=== PATIENT | female | born 1990 | race Hispanic/Latino ===

== ENCOUNTER 2017-05-20 09:58 | Emergency (ER) | payer OTHER ==
[2017-05-20 09:58] VITALS: BMI 31.5
--- NOTE | 2017-05-20 10:23 | C.PDOC ---
History Of Present Illness 27 year old female presents to the ED for evaluation of left lower quadrant abdominal pain which began around 3 days ago. Patient states her pain radiates to her left flank area and has worsened since its onset. Patient states she had brown-bloody spotting for one day on 05/10 and reports she has been experiencing nausea for around 3 weeks. Patient's last menstrual period was 04/16 and her urine was found to be hCG positive in ED Triage. Patient denies fever , chills and vomiting at this time. Patient reports history of one right-sided ectopic in 2007. Time Seen by Provider: 05/20/17 10:13 Chief Complaint (Nursing): Abdominal Pain History Per: Patient History/Exam Limitations: no limitations Onset/Duration Of Symptoms: Days (3) Current Symptoms Are (Timing): Worse Location Of Pain/Discomfort: LLQ Radiation Of Pain To:: Flank (left) Quality Of Discomfort: "Pain" Associated Symptoms: Nausea. denies: Fever, Chills, Vomiting Additional History Per: Patient Abnormal Vaginal Bleeding: Yes Last Menstral Period: 04/16/2017 : 2 Para: 0 Miscarriage: 1 Past Medical History Reviewed: Historical Data, Nursing Documentation, Vital Signs Vital Signs: Last Vital Signs Temp 97.9 F 05/20/17 15:17 Pulse 65 05/20/17 15:17 Resp 22 05/20/17 15:17 BP 137/70 05/20/17 15:17 Pulse Ox 100 05/20/17 15:17 - Medical History PMH: Asthma, Bronchitis, Migraine Surgical History: No Surg Hx - [facility] Procedures INJECT/INFUSE NEC (03/10/14) Family History: States: Unknown Family Hx - Social History Hx Tobacco Use: Yes Hx Alcohol Use: No Hx Substance Use: No - Immunization History Hx Tetanus Toxoid Vaccination: Yes Hx Influenza Vaccination: Yes Hx Pneumococcal Vaccination: No Review Of Systems Constitutional: Negative for: Fever, Chills Gastrointestinal: Positive for: Nausea, Abdominal Pain (left lower quadrant ) Genitourinary: Positive for: Other (vaginal spotting ) Musculoskeletal: Positive for: Other (left flank pain ) Physical Exam - Physical Exam Appears: Well, Non-toxic, No Acute Distress Skin: Normal Color, Warm, Dry Head: Atraumatic, Normacephalic Eye(s): bilateral: Normal Inspection Oral Mucosa: Moist Neck: Normal, Supple Chest: Symmetrical, No Deformity, No Tenderness Cardiovascular: Rhythm Regular, No Murmur Respiratory: Normal Breath Sounds, No Rales, No Rhonchi, No Wheezing Gastrointestinal/Abdominal: Soft, Tenderness (left lower quadrant and left flank ), No Guarding, No Rebound Back: Normal Inspection, No CVA Tenderness Extremity: Normal ROM, Capillary Refill (less than 2 seconds ) Neurological/Psych: Oriented x3, Normal Speech, Normal Cognition Gait: Steady ED Course And Treatment - Laboratory Results Result Diagrams: 05/20/17 11:10 05/20/17 11:10 O2 Sat by Pulse Oximetry: 100 (on RA) Pulse Ox Interpretation: Normal - CT Scan/US US abd/pelv/transvaginal Other Rad Studies (CT/US): Interpreted By Me, Read By Radiologist, Radiology Report Reviewed CT/US Interpretation: HISTORY: Left abdominal pain, ()HCG, HX OF ECTOPIC. COMPARISON: None available. TECHNIQUE: Transabdominal and transvaginal pelvic ultrasound was performed. FINDINGS: UTERUS: Measures 8.9 x 4.2 x 5.3 cm. Normal in size and appearance. No fibroid or other mass lesion seen. ENDOMETRIUM: Measures 10.0 mm in diameter. Normal in appearance. No evidence of intrauterine gestation. CERVIX: No cervical abnormality identified. RIGHT OVARY: Measures 2.4 x 2.3 x 3.1 cm. No solid mass. Normal flow. LEFT OVARY: Enlarged and measures 5.5 x 2.1 x 5.1 cm. There is a 2.2 x 1.7 x 2.4 cm complex lesion in the left ovary with mild peripheral increased vascularity. Normal flow. FREE FLUID: There is small amount of free fluid in the cul de sac and right adnexa. OTHER FINDINGS: None. IMPRESSION: 1. No evidence of intrauterine gestational sac. Enlarged left ovary with a 2.2 x 1.7 x 2.4 cm complex lesion which is indeterminate and could represent a complex cyst, corpus luteum cyst or ectopic in the absence of intrauterine gestation , positive by Beta -HCG and with the patient's stated history of prior ectopic . Clinical correlation and follow-up is advised. 2. Small amount of free fluid in the pelvis. Progress Note: Bloodwork, UA, and Transvaginal US ordered and reviewed. Medical Decision Making Medical Decision Makin:[address] Gr, case discussed, she is coming to ED to evaluate the pt. 15:00Pt was seen by Dr. Gr in ED, she recommended to order methothrexate 50 mg per m2 using elliott formula. She instructed pt to return to ED for repeat beta on 05/23 and 05/26. Disposition Counseled Patient/Family Regarding: Studies Performed, Diagnosis - Disposition [facility]] Disposition: HOME/ ROUTINE Disposition Time: 14:54 Condition: STABLE Additional Instructions: FOLLOW UP IN ED ON WEDNESDAY 05/23 AND SATURDAY 05/26 FOR REPEAT BETA HCG. PLEASE SCHEDULE A FOLLOW UP WITH YOUR GENERAL ACTIVITIES THERAPIST WELL. IF SYMPTOMS GET WORSE OR ANY NEW CONCERNING SYMPTOMS DEVELOP RETURN TO ED. 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 - Scribe Statement The provider has reviewed the documentation as recorded by the Scribe (Samra Melendrez) All medical record entries made by the Scribe were at my direction and personally dictated by me. I have reviewed the chart and agree that the record accurately reflects my personal performance of the history, physical exam, medical decision making, and the department course for this patient. I have also personally directed, reviewed, and agree with the discharge instructions and disposition.
[2017-05-20 10:29] VITALS: O2SAT 100
[2017-05-20 10:54] LABS: URINE BILIRUBIN NEGATIVE (NEGATIVE); URINE BLOOD 3+ (NEGATIVE); URINE COLOR Yellow (YELLOW); URINE GLUCOSE (UA) NORMAL (Normal); URINE KETONE TRACE mg/dL (NEGATIVE); URINE LEUKOCYTE ESTERASE NEG Leu/uL (Negative); URINE PROTEIN 1+ mg/dL (NEGATIVE); WBC URINE 1 /hpf (0-5)
[2017-05-20 10:55] LABS: RBC URINE 39 /hpf (0-3)
[2017-05-20 11:15] LABS: BASO % 0.3 % (0.0-2.0); EOS # 0.1 K/uL (0.0-0.7); EOS % 0.7 % (0.0-4.0); HEMATOCRIT 38.5 % (34.0-47.0); LYMPH # 1.2 K/uL (1.0-4.3); LYMPH % 11.8 % (20.0-40.0); MEAN CELL VOLUME 92.4 fL (81.0-99.0); MEAN CORPUSCULAR HEMOGLOBIN 32.2 pg (27.0-31.0); MEAN CORPUSCULAR HGB CONC 34.8 g/dL (33.0-37.0); MEAN PLATELET VOLUME 10.3 fL (7.2-11.7); MONO # 0.7 K/uL (0.0-0.8); MONO % 7.2 % (0.0-10.0); RED CELL DISTRIBUTION WIDTH 13.2 % (11.5-14.5)
[2017-05-20 11:16] LABS: WHITE BLOOD COUNT 9.9 K/uL (4.8-10.8)
[2017-05-20 11:36] LABS: CHLORIDE 103 mmol/L (98-107)
[2017-05-20 11:37] LABS: POTASSIUM 4.1 mmol/L (3.6-5.2); SODIUM 133 mmol/L (132-148)
[2017-05-20 11:39] LABS: ALKALINE PHOSPHATASE 62 U/L (38-126); ALT/SGPT 26 U/L (9-52); AST/SGOT 31 U/L (14-36); BILIRUBIN,TOTAL 0.6 mg/dL (0.2-1.3); BLOOD UREA NITROGEN 7 mg/dL (7-17); CARBON DIOXIDE 21 mmol/L (22-30); GFR AFRICAN-AMERICAN > 60
[2017-05-20 11:40] LABS: CALCIUM 8.3 mg/dl (8.6-10.4); GLUCOSE,RANDOM 85 mg/dL (65-105)
--- NOTE | 2017-05-20 13:24 | US ---
HISTORY: Left abdominal pain, ()HCG, HX OF ECTOPIC COMPARISON: None available. TECHNIQUE: Transabdominal and transvaginal pelvic ultrasound was performed. FINDINGS: UTERUS: Measures 8.9 x 4.2 x 5.3 cm. Normal in size and appearance. No fibroid or other mass lesion seen. ENDOMETRIUM: Measures 10.0 mm in diameter. Normal in appearance. No evidence of intrauterine gestation. CERVIX: No cervical abnormality identified. RIGHT OVARY: Measures 2.4 x 2.3 x 3.1 cm. No solid mass. Normal flow. LEFT OVARY: Enlarged and measures 5.5 x 2.1 x 5.1 cm. There is a 2.2 x 1.7 x 2.4 cm complex lesion in the left ovary with mild peripheral increased vascularity. Normal flow. FREE FLUID: There is small amount of free fluid in the cul de sac and right adnexa. OTHER FINDINGS: None. IMPRESSION: 1. No evidence of intrauterine gestational sac. Enlarged left ovary with a 2.2 x 1.7 x 2.4 cm complex lesion which is indeterminate and could represent a complex cyst, corpus luteum cyst or ectopic in the absence of intrauterine gestation, positive by Beta -HCG and with the patient's stated history of prior ectopic . Clinical correlation and follow-up is advised. 2. Small amount of free fluid in the pelvis.
[2017-05-20] MEDS ORDERED: Methotrexate 50 mg/2 ml Inj IM STA ×3 (14:54→15:17)
[2017-05-20 15:18] VITALS: BP 137/70; PULSE 65; RESP 22; TEMP 97.9
--- NOTE | 2017-05-20 15:35 | CP.PCM.CON ---
History of Present Illness - History of Present Illness History of Present Illness: Asked to see patient by Romi BRUCE - probable (left) ectopic Patient received in E.D. on stretcher, bed #14 - crying; mother at her side; awake, alert, oriented to time, person and place. Patient is a 27 y.o. , LNMP 04/16/17 x 7 days; followed by one day of vaginal spotting 05/10/17 - no bleeding/spotting after. Onset of LLQ pain, , pain scale 4/10 - took no meds. Then pain returned Monday05/18/17, pain scale 6 07/11/09 - took Aleve with some relief. Pain returned this morning with vaginal spotting at approximately 0330 hours. As she was expecting her menses, took Midol. There was no relief in the pain, prompting her to come in for evaluation. In the E.D., has not received any pain medications. Reports pain scale still 7/10. Denies nausea, vomiting; (+) mild vaginal spotting. Previuos picu nurse history significant for ruptured ectopic in 2007. Patient therefore distressed at the ultrasound report with left adnexal complex lesion, 2.2 x 1.7 x 2.4 cm "with mild peripheral vascularity", quantitative HCG of 220 mIU, in addition to the vaginal spotting and abdominal pain - all of which is suggestive of an ectopic . P Ob: 2007, ruptured right ectopic , required blood transfusion P YARN DUMPER: 9 x menses 10 months out of the year x 5-7. Denies h/o STIs. Most recent Pap, 2016; currently, does not have a picu nurse provider. PMH: 2012, fibromyalgia. h/o asthma, onset in sanipract[facility] physician. Last attack 2012 , concomitant with bronchitis (which occurs once a year); never intubated. H/O anemia - 2007, S/P blood transfusion (per patient, S/P 5 U PRBCs) PSH: 2007, open laparotomy with right salpingectomy NKDA Meds: NSAIs as above, PRN Soc Hx: (+) tobacco use 4-5 cigs/day x 13 years. (+) daily marijuana use: 2-3 times a day. Denies EtOH use. 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 Lives alone. With current sexual partner x 2 1/2 years. Fam Hx; Mother alive 51 y.o. - h/o asthma, diverticulitis. Father earlier this year - age 69 - complications from pneumonia; h/o CAD, HTN. No known fam h/o cancer Review of Systems - Review of Systems All systems: reviewed and no additional remarkable complaints except - Gastrointestinal Gastrointestinal: As Per HPI, Abdominal Pain - Reproductive: Female Reproductive:Female: As Per HPI Additional comments: vaginal spotting - Hematologic/Lymphatic Hematologic: As Per HPI Past Patient History - Infectious Disease Hx of Infectious Diseases: None - Tetanus Immunizations Tetanus Immunization: Unknown - Past Medical History & Family History Past Medical History?: Yes Pertinent Family History: HTN, DM, heart disease - Past Social History Smoking Status: Current Some Days Smoker Chewing Tobacco Use: No Cigar Use: No Alcohol: None Drugs: Cannabis Home Situation {Lives}: Alone - CARDIAC Hx Cardiac Disorders: No - PULMONARY Hx Asthma: Yes Hx Bronchitis: Yes - NEUROLOGICAL Hx Migraine: Yes - HEENT Hx HEENT Problems: No - RENAL Hx Chronic Kidney Disease: No - HEMATOLOGICAL/ONCOLOGICAL Hx Anemia: Yes (2007) Hx Blood Transfusions: Yes (2007) - INTEGUMENTARY Hx Dermatological Problems: No - MUSCULOSKELETAL/RHEUMATOLOGICAL Hx Musculoskeletal Disorders: Yes Other/Comment: Fibromyalgia - GASTROINTESTINAL Hx Gastrointestinal Disorders: No - GENITOURINARY/GYNECOLOGICAL Hx Genitourinary Disorders: No LMP:: 04/16/2017 : 2 Para: 0 Termination of : 1 - PSYCHIATRIC Hx Substance Use: No - SURGICAL HISTORY Hx Surgeries: Yes Other/Comment: right salpingectomy - ANESTHESIA Hx Anesthesia: Yes Hx Anesthesia Reactions: No Meds Home Medications: Home Medication List Medication Instructions Recorded Confirmed Type Ibuprofen [Motrin Tab] 1 tab PO Q6H PRN #15 tab 05/20/17 Rx Allergies/Adverse Reactions: Allergies Allergy/AdvReac Type Severity Reaction Status Date / Time No Known Allergies Allergy Verified 05/20/17 10:02 Physical Exam - Constitutional Appears: Well, No Acute Distress Additional comments: Crying - Head Exam Head Exam: NORMAL INSPECTION, NORMOCEPHALIC - Eye Exam Eye Exam: Normal appearance - ENT Exam ENT Exam: Mucous Membranes Moist - Neck Exam Neck exam: Positive for: Full Rom - Cardiovascular Exam Cardiovascular Exam: REGULAR RHYTHM - GI/Abdominal Exam GI & Abdominal Exam: Soft Additional comments: No rebound tenderness; non tender in all quadrants - Exam Bimanual exam: NORMAL BIMANUAL EXAM (No cervical motion, uterine or bilateral adnexal tenderness; anteverted uterus, 8 weeks, soft, mobile non tender.) - Extremities Exam Extremities exam: Positive for: full ROM, normal inspection - Back Exam Back exam: NORMAL INSPECTION - Neurological Exam Neurological exam: Alert, Normal Gait, Oriented x3 - Psychiatric Exam Psychiatric exam: Normal Affect, Normal Mood Additional comments: Appropriately sad - Skin Skin Exam: Dry, Intact, Normal Color, Warm Results - Vital Signs Recent Vital Signs: Last Vital Signs Temp 98.4 F 05/20/17 10:28 Pulse 75 05/20/17 10:28 Resp 20 05/20/17 10:28 BP 118/77 05/20/17 10:28 Pulse Ox 100 05/20/17 15:06 - Labs Result Diagrams: 05/20/17 11:10 05/20/17 11:10 Labs: Laboratory Results - last 24 hr 05/20/17 05/20/17 05/20/17 10:39 11:10 11:10 WBC 9.9 D RBC 4.17 Hgb 13.4 Hct 38.5 MCV 92.4 MCH 32.2 H MCHC 34.8 RDW 13.2 Plt Count 145 MPV 10.3 Neut % (Auto) 80.0 H Lymph % (Auto) 11.8 L [place] % (Auto) 7.2 Eos % (Auto) 0.7 Baso % (Auto) 0.3 Neut # 7.9 H Lymph # 1.2 [place] # 0.7 Eos # 0.1 Baso # 0.0 Sodium 133 Potassium 4.1 Chloride 103 Carbon Dioxide 21 L Anion Gap 13 BUN 7 Creatinine 0.5 L Est GFR ( Amer) > 60 Est GFR (Non-Af Amer) > 60 Random Glucose 85 Calcium 8.3 L Total Bilirubin 0.6 AST 31 ALT 26 Alkaline Phosphatase 62 Total Protein 8.0 Albumin 4.0 Globulin 4.0 H Albumin/Globulin Ratio 1.0 Beta HCG, Quant 220.45 Urine Color Yellow Urine Clarity Hazy Urine pH 6.0 Ur Specific [place] 1.029 Urine Protein 1+ H Urine Glucose (UA) Normal Urine Ketones Trace Urine Blood 3+ H Urine Nitrate Negative Urine Bilirubin Negative Urine Urobilinogen 2.0 H Ur Leukocyte Esterase Neg Urine WBC (Auto) 1 Urine RBC (Auto) 39 H Ur Squamous Epith Cells 13 H Urine HCG, Qual Positive Blood Type Blood Type Confirm Antibody Screen 05/20/17 11:10 WBC RBC Hgb Hct MCV MCH MCHC RDW Plt Count MPV Neut % (Auto) Lymph % (Auto) [place] % (Auto) Eos % (Auto) Baso % (Auto) Neut # Lymph # [place] # Eos # Baso # Sodium Potassium Chloride Carbon Dioxide Anion Gap BUN Creatinine Est GFR ( Amer) Est GFR (Non-Af Amer) Random Glucose Calcium Total Bilirubin AST ALT Alkaline Phosphatase Total Protein Albumin Globulin Albumin/Globulin Ratio Beta HCG, Quant Urine Color Urine Clarity Urine pH Ur Specific [place] Urine Protein Urine Glucose (UA) Urine Ketones Urine Blood Urine Nitrate Urine Bilirubin Urine Urobilinogen Ur Leukocyte Esterase Urine WBC (Auto) Urine RBC (Auto) Ur Squamous Epith Cells Urine HCG, Qual Blood Type O POSITIVE Blood Type Confirm O POSITIVE Antibody Screen Negative Assessment & Plan - Assessment and Plan (Free Text) Assessment: Ultrasound report and lab results reviewed by jonel naranjo 27 y.o. P0010, h/o ectopic 2007, S/P emergency laparotomy with right salpingectomy. Surgery complicated by "punctured lung" and blood transfusion. Reviewed with patient findings as above: patient very astute and appreciative of the likelihood of an ectopic . Options discussed, with a full discussion of R/B/C of each route: 1) surgery - laparoscopy, possible laparotomy , with possible removal of fallopian tube 2) methotrexate. Also included in this discussion was a) serial determinations of quantitative HCG level as per protocol - starting with Day 1, Day 4, Day 7; and then weekly until zero - if levels decrease appropriately; b) possibility of a second dose on day 4, if increase in HCG level is noted; c) possible surgery, even after the shot. All of patient's questions were answered. Patient has opted for methotrexate - "I really do not want to go through with surgery". It was also discussed with patient, the importance of picu nurse follow up. It was stressed to patient that even though we are attempting to "salvage" her left fallopian tube, in light of this being a possible second ectopic on her remaining tube, this tube may not be able to function normally physiologically; so much so that a normal intrauterine may not manifest itself for her. Patient expressed an understanding; still desires to proceed with methotrexate. Patient is clinically stable. Plan: 1) Methotrexate {50 mg/ squared meters} 97.5 mg IM x 1 2) Rx: motrin 600 mg 1 tab by mouth every 6 hours, PRN 3) Return to E.D. Day 4, (05/23) and Day 7, (Monday05/26/17) - quantitative HCG levels 4) Return to E.D. for severe, worsening LAP; loss of consciousness Thank you for the pleasure of this consultation - Date & Time Date: 05/20/17 Time: 15:00
== END 2017-05-20 16:12 | disposition home or self-care (01) ==
LOC: C.ER 09:58
DX: O00.90 Unspecified ectopic pregnancy without intrauterine pregnancy (principal)
CPT/HCPCS: 76830; 76856; 80053; 81001; 84702; 84703; 85025; 86850; 86900; 96372; 99285; J9250

== ENCOUNTER 2017-05-23 09:19 | Emergency (ER) | payer OTHER ==
[2017-05-23 09:39] VITALS: BMI 30.9
[2017-05-23 09:41] VITALS: RESP 18; TEMP 98.4; O2SAT 100
--- NOTE | 2017-05-23 09:42 | C.PDOC ---
History Of Present Illness FOR REPEAT BETA POSSIBLE "SHOT". SEEN 05/20, +ECTOPIC ON US. BETA 220 ON 05/20. PER [address] PORTILLO CONSULT NOTE, PT TO HAVE SERIAL BETA Starting with Day 1, Day 4, Day 7; and then weekly until zero - if levels decrease appropriately; b) possibility of a second dose on day 4, if increase in HCG level is noted. ASYMPT EXAM NEG Time Seen by Provider: 05/23/17 09:41 Chief Complaint (Nursing): Medical Clearance History Per: Patient History/Exam Limitations: no limitations Past Medical History Reviewed: Historical Data, Nursing Documentation, Vital Signs Vital Signs: Last Vital Signs Temp 98.4 F 05/23/17 09:38 Pulse 63 05/23/17 09:38 Resp 18 05/23/17 09:38 BP 109/72 05/23/17 09:38 Pulse Ox 100 05/23/17 11:08 - Medical History PMH: Anemia (2007), Asthma, Bronchitis, Migraine - [facility] Procedures INJECT/INFUSE NEC (03/10/14) Family History: States: No Known Family Hx - Social History Hx Tobacco Use: Yes Hx Alcohol Use: No Hx Substance Use: No - Immunization History Hx Tetanus Toxoid Vaccination: Yes Hx Influenza Vaccination: Yes Hx Pneumococcal Vaccination: No Review Of Systems Except As Marked, All Systems Reviewed And Found Negative. Constitutional: Negative for: Fever Gastrointestinal: Negative for: Nausea, Vomiting, Abdominal Pain Physical Exam - Physical Exam Appears: Non-toxic, No Acute Distress Skin: Warm, Dry, No Rash Oral Mucosa: Moist Respiratory: Normal Breath Sounds Gastrointestinal/Abdominal: Normal Exam, Soft, No Tenderness, No Guarding, No Rebound Extremity: Normal ROM, No Swelling Neurological/Psych: Oriented x3, Normal Speech ED Course And Treatment O2 Sat by Pulse Oximetry: 100 (RA) Pulse Ox Interpretation: Normal Reevaluation Time: 11:06 Reassessment Condition: Unchanged (EXAM UNCH FROM INITIAL. BETA REDUCED COMPARED TO 05/20. NO REPEAT METHERGIN PER DR PORTILLO CONSULT. ADVISED RETURN PREV ADVISED FOR REPEAT BETA) Medical Decision Making Medical Decision Making: PLAN: * BETA Disposition Counseled Patient/Family Regarding: Studies Performed, Diagnosis, Need For Followup - Disposition Referrals: On License Of [facility] [Outside] [facility] [Outside] Disposition Time: 11:07 Additional Instructions: RETURN SCHEDULED FOR REPEAT HORMONE BLOOD TEST Forms: [facility] (Cayman Islander), General Discharge Instructions - Clinical Impression Clinical Impression: Medical assessment - Scribe Statement The provider has reviewed the documentation as recorded by the Scribe Ashlie Mcdonough Provider Attestation: All medical record entries made by the Scribe were at my direction and personally dictated by me. I have reviewed the chart and agree that the record accurately reflects my personal performance of the history, physical exam, medical decision making, and the department course for this patient. I have also personally directed, reviewed, and agree with the discharge instructions and disposition.
[2017-05-23 11:10] VITALS: BP 110/65; PULSE 71
== END 2017-05-23 11:13 | disposition home or self-care (01) ==
LOC: C.ER 09:19
DX: Z36.89 Encounter for other specified antenatal screening (principal)

== ENCOUNTER 2017-05-26 09:43 | Emergency (ER) | payer OTHER ==
[2017-05-26 09:43] VITALS: BMI 30.9
[2017-05-26 09:51] VITALS: BP 114/74; PULSE 63; RESP 18; TEMP 97.6; O2SAT 97
[2017-05-26] MEDS ORDERED: Sodium Chloride 0.9% 1,000 ML IV ONE (10:10)
--- NOTE | 2017-05-26 10:20 | C.PDOC ---
History Of Present Illness 27 y/o female, with history of ectopic in the past, , presents to ED for repeat blood work. Pt was diagnosed with ectopic and was given Methotrexate. Repeat beta HCG was done 3 days ago. Pt also complaints of pain to her left lower back. Denies fever, or any other complaints at this time. Time Seen by Provider: 05/26/17 10:00 Chief Complaint (Nursing): Medical Clearance History Per: Patient History/Exam Limitations: no limitations Onset/Duration Of Symptoms: Days Current Symptoms Are (Timing): Still Present Reports Recently: Seen In ED Recent travel outside of the [place]: No Additional History Per: Patient Past Medical History Reviewed: Historical Data, Nursing Documentation, Vital Signs Vital Signs: Last Vital Signs Temp 97.6 F 05/26/17 09:46 Pulse 63 05/26/17 09:46 Resp 18 05/26/17 09:46 BP 114/74 05/26/17 09:46 Pulse Ox 97 05/26/17 12:50 - Medical History PMH: Anemia (2007), Asthma, Bronchitis, Migraine Denies: Chronic Kidney Disease - [facility] Procedures INJECT/INFUSE NEC (03/10/14) Family History: States: Unknown Family Hx - Social History Hx Tobacco Use: Yes Hx Alcohol Use: No Hx Substance Use: Yes (daily use of marijuana) - Immunization History Hx Tetanus Toxoid Vaccination: Yes Hx Influenza Vaccination: Yes Hx Pneumococcal Vaccination: No Review Of Systems Except As Marked, All Systems Reviewed And Found Negative. Constitutional: Negative for: Fever, Chills Gastrointestinal: Negative for: Nausea, Vomiting, Abdominal Pain Genitourinary: Negative for: Dysuria, Frequency, Incontinence, Hematuria Musculoskeletal: Positive for: Back Pain Neurological: Negative for: Weakness, Numbness Physical Exam - Physical Exam Appears: Non-toxic, No Acute Distress Skin: Normal Color, Warm, Dry Head: Atraumatic, Normacephalic Eye(s): bilateral: Normal Inspection Oral Mucosa: Moist Neck: Normal ROM, Supple Chest: Symmetrical Cardiovascular: Rhythm Regular, No Murmur Respiratory: Normal Breath Sounds, No Rales, No Rhonchi, No Wheezing Gastrointestinal/Abdominal: Soft, No Tenderness Back: No CVA Tenderness, No Vertebral Tenderness, Paraspinal Tenderness (left paralumbar) Extremity: Normal ROM, No Pedal Edema Neurological/Psych: Oriented x3, Normal Speech, Normal Cognition ED Course And Treatment - Laboratory Results Result Diagrams: 05/26/17 10:27 05/26/17 10:27 O2 Sat by Pulse Oximetry: 97 (on RA) Pulse Ox Interpretation: Normal Medical Decision Making Medical Decision Making: Blood work, UA, transvaginal US ordered and reviewed. Pt was given Tylenol and IV fluids. Case discussed with OB ammonium nitrate crystallizer, Dr. Gr, who requested to repeat Beta HCG in 1 week. abd soft pt taking po no ttp Disposition - Disposition Referrals: [facility] [Outside] [facility] [Outside] [facility] [Outside] Disposition: HOME/ ROUTINE Disposition Time: 01:00 Condition: STABLE Additional Instructions: please follow up with your doctor. return to er with worsening symptoms or concerns. you need repeat lab work in 1 week. return to er if you can no longer see obgyn as outpt Instructions: Ectopic (ED) Forms: [facility] (Greek) - Clinical Impression Clinical Impression: Ectopic - Scribe Statement The provider has reviewed the documentation as recorded by the Scribe Tiff Melendrez All medical record entries made by the Scribe were at my direction and personally dictated by me. I have reviewed the chart and agree that the record accurately reflects my personal performance of the history, physical exam, medical decision making, and the department course for this patient. I have also personally directed, reviewed, and agree with the discharge instructions and disposition.
[2017-05-26] MEDS ORDERED: Sodium Chloride 0.9% 1,000 ML ONE (10:25)
[2017-05-26 10:39] LABS: BASO % 0.4 % (0.0-2.0); EOS # 0.1 K/uL (0.0-0.7); EOS % 1.1 % (0.0-4.0); HEMATOCRIT 36.4 % (34.0-47.0); LYMPH # 1.5 K/uL (1.0-4.3); LYMPH % 24.1 % (20.0-40.0); MEAN CELL VOLUME 91.5 fL (81.0-99.0); MEAN CORPUSCULAR HEMOGLOBIN 31.9 pg (27.0-31.0); MEAN CORPUSCULAR HGB CONC 34.8 g/dL (33.0-37.0); MEAN PLATELET VOLUME 10.2 fL (7.2-11.7); MONO # 0.4 K/uL (0.0-0.8); MONO % 6.4 % (0.0-10.0)
[2017-05-26 10:44] LABS: RBC URINE 13 /hpf (0-3); URINE BILIRUBIN NEGATIVE (NEGATIVE); URINE BLOOD 3+ (NEGATIVE); URINE COLOR Yellow (YELLOW); URINE GLUCOSE (UA) NORMAL (Normal); URINE KETONE NEGATIVE (NEGATIVE); URINE LEUKOCYTE ESTERASE NEG Leu/uL (Negative); URINE PROTEIN NEGATIVE (NEGATIVE); URINE UROBILINOGEN NORMAL mg/dL (0.2-1.0); WBC URINE 2 /hpf (0-5)
[2017-05-26 10:46] LABS: INR 1.1
[2017-05-26 11:08] LABS: ALB/GLOB RATIO 1.3 (1.0-2.1); ALKALINE PHOSPHATASE 65 U/L (38-126); ALT/SGPT 31 U/L (9-52); AST/SGOT 26 U/L (14-36); BILIRUBIN,TOTAL 0.7 mg/dL (0.2-1.3); BLOOD UREA NITROGEN 8 mg/dL (7-17); CALCIUM 8.6 mg/dl (8.6-10.4); CARBON DIOXIDE 23 mmol/L (22-30); CHLORIDE 100 mmol/L (98-107); GFR AFRICAN-AMERICAN > 60; GLUCOSE,RANDOM 87 mg/dL (65-105); POTASSIUM 3.6 mmol/L (3.6-5.2); SODIUM 135 mmol/L (132-148); TOTAL PROTEIN 7.7 g/dL (6.3-8.3)
--- NOTE | 2017-05-26 11:30 | US ---
HISTORY: left adexal pain, h/o of ectopic COMPARISON: None available. TECHNIQUE: Transvaginal FINDINGS: UTERUS: Measures 6.9 x 3.6 x 4 point a cm. Normal in size and appearance. No fibroid or other mass lesion seen. ENDOMETRIUM: Measures 6 mm in diameter. Unremarkable. CERVIX: No cervical abnormality identified. RIGHT OVARY: Measures 2.8 x 1.4 x 2 point a cm. No solid mass. Normal flow. LEFT OVARY: Measures 2.6 x 1.6 x 1.9 cm. No solid mass. Normal flow. FREE FLUID: No significant free fluid noted. OTHER FINDINGS: None. IMPRESSION: Unremarkable pelvic ultrasound. No sonographically evident ectopic gestation. No intrauterine gestation identified.
== END 2017-05-26 13:00 | disposition home or self-care (01) ==
LOC: C.ER 09:43
DX: O00.90 Unspecified ectopic pregnancy without intrauterine pregnancy (principal); Z87.891 Personal history of nicotine dependence
CPT/HCPCS: 76830; 80053; 81001; 84702; 84703; 85025; 85610; 85730; 86850; 86900; 96360; 99284; J7040

== ENCOUNTER 2017-06-02 11:00 | Emergency (ER) | payer OTHER ==
[2017-06-02 11:04] VITALS: BMI 30.1
[2017-06-02 11:05] VITALS: BP 102/68; PULSE 68; RESP 18; TEMP 97.8; O2SAT 97
--- NOTE | 2017-06-02 12:15 | C.PDOC ---
History Of Present Illness Pt is here because she was told to come back for a repeat beta hcg level. She was diagnosed with an ectopic and was treated with Methotrexate injection. Time Seen by Provider: 06/02/17 11:12 Chief Complaint (Nursing): Medical Clearance History Per: Patient Onset/Duration Of Symptoms: Days (1 week) Current Symptoms Are (Timing): Better Severity: Mild Reports Recently: Seen In ED, Treated By A Physician Additional History Per: Prior Records Past Medical History Reviewed: Historical Data, Nursing Documentation, Vital Signs Vital Signs: Last Vital Signs Temp 97.8 F 06/02/17 11:04 Pulse 68 06/02/17 11:04 Resp 18 06/02/17 11:04 BP 102/68 06/02/17 11:04 Pulse Ox 97 06/02/17 11:04 - Medical History PMH: Anemia (2007), Asthma, Bronchitis, Migraine Other Surgeries: Surgery for previous ectopic . - Night Out Procedures INJECT/INFUSE NEC (03/10/14) Family History: States: Unknown Family Hx - Social History Hx Tobacco Use: Yes Hx Alcohol Use: No Hx Substance Use: Yes (daily use of marijuana) - Immunization History Hx Tetanus Toxoid Vaccination: Yes Hx Influenza Vaccination: Yes Hx Pneumococcal Vaccination: No Review Of Systems Except As Marked, All Systems Reviewed And Found Negative. Constitutional: Negative for: Fever, Weakness Cardiovascular: Negative for: Chest Pain, Light Headedness Respiratory: Negative for: Shortness of Breath Gastrointestinal: Negative for: Vomiting, Abdominal Pain, Diarrhea Genitourinary: Positive for: Vaginal Bleeding (spotting). Negative for: Dysuria Musculoskeletal: Negative for: Neck Pain, Back Pain Skin: Negative for: Rash Neurological: Negative for: Weakness, Numbness, Dizziness Physical Exam - Physical Exam Appears: Non-toxic, No Acute Distress Skin: Normal Color, Warm, Dry, No Rash Head: Atraumatic, Normacephalic Eye(s): bilateral: Normal Inspection, PERRL, EOMI Neck: Normal ROM, Supple Cardiovascular: Rhythm Regular Respiratory: Normal Breath Sounds, No Accessory Muscle Use Gastrointestinal/Abdominal: Soft, No Tenderness Back: No CVA Tenderness Extremity: Normal ROM Neurological/Psych: Oriented x3, Normal Motor, Normal Sensation ED Course And Treatment - Laboratory Results Interpretation Of Abnormal: Beta hcg level is now down to zero. O2 Sat by Pulse Oximetry: 97 Pulse Ox Interpretation: Normal Disposition Counseled Patient/Family Regarding: Studies Performed, Diagnosis, Need For Followup - Disposition Referrals: Hai Gore MD [Staff Provider] - Disposition: HOME/ ROUTINE Disposition Time: 12:16 Condition: STABLE Additional Instructions: You hormone level is now zero. Follow up with your [facility]. Return to the ER if you develop dizziness, pain, fever, worsening of symptoms or if you have any other concerns. Instructions: Ectopic (ED), Methotrexate (By injection) Forms: [employer] (Yemeni) - Clinical Impression Clinical Impression: Encounter for laboratory test
== END 2017-06-02 12:23 | disposition home or self-care (01) ==
LOC: C.ER 11:00
DX: Z36.89 Encounter for other specified antenatal screening (principal)

== ENCOUNTER 2018-08-01 20:21 | Emergency (ER) | payer OTHER ==
[2018-08-01 20:22] VITALS: BMI 30.1
[2018-08-01 20:28] VITALS: O2SAT 99
--- NOTE | 2018-08-01 20:52 | C.PDOC ---
History Of Present Illness 28 y/o female presents to the ED for evaluation of head injury sustained 3 days ago. Patient states that on Monday a piece of metal fell on her head. States she did not lose consciousness but she developed headache right away, which has not improved. She also developed nausea, with no vomiting. Denies any visual loss, change in speech, SOB, dizziness, or other complaints. Time Seen by Provider: 08/01/18 20:36 Chief Complaint (Nursing): Headache History Per: Patient History/Exam Limitations: no limitations Onset/Duration Of Symptoms: Days Current Symptoms Are (Timing): Still Present Associated Symptoms: Nausea Past Medical History Reviewed: Historical Data, Nursing Documentation, Vital Signs Vital Signs: Last Vital Signs Temp 98 F 08/01/18 20:23 Pulse 64 08/01/18 20:23 Resp 20 08/01/18 20:23 BP 106/60 08/01/18 20:23 Pulse Ox 99 08/01/18 20:23 - Medical History PMH: Anemia (2007), Asthma, Bronchitis, Fibromyalgia, Migraine Denies: Chronic Kidney Disease - [employer] Procedures INJECT/INFUSE NEC (03/10/14) Family History: States: Unknown Family Hx - Social History Hx Tobacco Use: Yes Hx Alcohol Use: No Hx Substance Use: Yes (daily use of marijuana) - Immunization History Hx Tetanus Toxoid Vaccination: No Hx Influenza Vaccination: No Hx Pneumococcal Vaccination: No Review Of Systems Except As Marked, All Systems Reviewed And Found Negative. Constitutional: Negative for: Fever, Chills Eyes: Negative for: Vision Change Cardiovascular: Negative for: Chest Pain Respiratory: Negative for: Shortness of Breath Gastrointestinal: Positive for: Nausea. Negative for: Vomiting Neurological: Positive for: Headache. Negative for: Weakness, Numbness, Change in Speech, Confusion, Dizziness Physical Exam - Physical Exam Appears: Non-toxic, No Acute Distress Skin: Warm, Dry Head: Normacephalic, No Swelling (or hematoma), No Abrasion Eye(s): bilateral: Normal Inspection, PERRL, EOMI Ear(s): Bilateral: Normal (no hemotympanum) Nose: No Septal Hematoma Oral Mucosa: Moist Neck: Normal ROM, Supple Chest: Symmetrical Cardiovascular: Rhythm Regular, No Murmur Respiratory: Normal Breath Sounds, No Accessory Muscle Use Extremity: Bilateral: Atraumatic, Normal Color And Temperature Neurological/Psych: Oriented x3, Normal Speech, Normal Cranial Nerves, No Cerebellar Signs, Normal Reflexes, Other (No focal deficits) ED Course And Treatment - Laboratory Results Urine POC: Negative O2 Sat by Pulse Oximetry: 99 (RA) Pulse Ox Interpretation: Normal - CT Scan/US Head Other Rad Studies (CT/US): Read By Radiologist, Radiology Report Reviewed CT/US Interpretation: Negative as per [place] rad Dr.Michael Vidal Progress Note: Ordered CT Head to rule out intracranial hemorrhage. Disposition - Disposition Disposition: HOME/ ROUTINE Disposition Time: 23:07 Condition: STABLE Additional Instructions: Follow up with PMD within 1-2 days. Return to ED if feel worse. Prescriptions: Acetaminophen [Tylenol 325mg tab] 2 tab PO Q6 #50 tab Instructions: Minor Head Injury (DC) Forms: [employer] ([place]ese) - Clinical Impression Clinical Impression: Minor head injury - PA / CAN DOFFER / Resident Statement MD/DO has reviewed & agrees with the documentation as recorded. - Scribe Statement The provider has reviewed the documentation as recorded by the Scribelma Campbell All medical record entries made by the Scribe were at my direction and personally dictated by me. I have reviewed the chart and agree that the record accurately reflects my personal performance of the history, physical exam, medical decision making, and the department course for this patient. I have also personally directed, reviewed, and agree with the discharge instructions and disposition.
[2018-08-01 23:17] VITALS: BP 121/84; PULSE 97; RESP 16; TEMP 97
--- NOTE | 2018-08-02 08:38 | CT ---
Date of service: 08/01/2018 PROCEDURE: CT HEAD WITHOUT CONTRAST. HISTORY: head injury COMPARISON: None available. TECHNIQUE: Axial computed tomography images were obtained through the head/brain without intravenous contrast. Radiation dose: Total exam DLP = 1009.2 mGy-cm. This CT exam was performed using one or more of the following dose reduction techniques: Automated exposure control, adjustment of the mA and/or kV according to patient size, and/or use of iterative reconstruction technique. FINDINGS: HEMORRHAGE: No intracranial hemorrhage. BRAIN: No mass effect or edema. No atrophy or chronic microvascular ischemic changes. Small parenchymal calcification along the left tentorium as demonstrated on series 4, image 19. VENTRICLES: Unremarkable. No hydrocephalus. CALVARIUM: Unremarkable. PARANASAL SINUSES: Unremarkable as visualized. No significant inflammatory changes. MASTOID AIR CELLS: Unremarkable as visualized. No inflammatory changes. OTHER FINDINGS: None. IMPRESSION: No acute intracranial abnormality. If symptoms persists, consider correlation with MRI. A preliminary report was generated at 11:03 p.m. 08/01/[address] Sb Vidal from [facility].
== END 2018-08-01 23:15 | disposition home or self-care (01) ==
LOC: C.ER 20:21
DX: S09.90XA Unspecified injury of head, initial encounter (principal); W22.8XXA Striking against or struck by other objects, initial encounter

== ENCOUNTER 2018-08-26 12:24 | Emergency (ER) | payer OTHER ==
[2018-08-26 12:24] VITALS: BMI 30.1
[2018-08-26 12:28] VITALS: O2SAT 100
--- NOTE | 2018-08-26 13:36 | C.PDOC ---
History Of Present Illness The patient is a 28 year old female who suffered a concussion on 07/29, after a metal pole fell onto her head while she was at work. She was evaluated in the ED on 08/01 and underwent a head CT, which was unremarkable. She was discharged with instructions to follow up with her PMD. Upon following up, patient informed her PMD that her headaches had continued and she was instructed to follow up with a neurologist. Patient has not followed up with neurologist yet. She has been taking Ibuprofen with transient relief. Patient presents to the ED today, stating her headache and dizziness took her breath away this morning. She presents to the ED because she is concerned about her gasping breath. She denies chest pain, cough, or any other respiratory complaints at this time. Time Seen by Provider: 08/26/18 12:58 Chief Complaint (Nursing): Headache History Per: Patient History/Exam Limitations: no limitations Onset/Duration Of Symptoms: Days Current Symptoms Are (Timing): Still Present Quality: Aching Additional History Per: Patient Past Medical History Reviewed: Historical Data, Nursing Documentation, Vital Signs Vital Signs: Last Vital Signs Temp 98.2 F 08/26/18 12:25 Pulse 74 08/26/18 12:25 Resp 20 08/26/18 12:25 BP 102/68 08/26/18 12:25 Pulse Ox 100 08/26/18 12:25 - Medical History PMH: Anemia (2007), Asthma, Bronchitis, Fibromyalgia, Migraine Denies: Chronic Kidney Disease Surgical History: No Surg Hx - [facility] Procedures INJECT/INFUSE NEC (03/10/14) Family History: States: Unknown Family Hx - Social History Hx Tobacco Use: Yes Hx Alcohol Use: No Hx Substance Use: Yes (daily use of marijuana) - Immunization History Hx Tetanus Toxoid Vaccination: No Hx Influenza Vaccination: No Hx Pneumococcal Vaccination: No Review Of Systems Cardiovascular: Negative for: Chest Pain Respiratory: Positive for: Other (gasping breath ). Negative for: Cough Neurological: Positive for: Headache, Dizziness Physical Exam - Physical Exam Appears: Non-toxic, No Acute Distress Skin: Normal Color, Warm, Dry Head: Atraumatic, Normacephalic Eye(s): bilateral: Normal Inspection Oral Mucosa: Moist Neck: Supple Chest: Symmetrical, No Deformity, No Tenderness Cardiovascular: Rhythm Regular, No Murmur Respiratory: Normal Breath Sounds, No Rales, No Rhonchi, No Wheezing Extremity: Normal ROM, Capillary Refill (less than 2 seconds) Neurological/Psych: Oriented x3, Normal Speech, Normal Cognition Gait: Steady ED Course And Treatment O2 Sat by Pulse Oximetry: 100 (on RA) Pulse Ox Interpretation: Normal - Radiology CXR: Read By Radiologist CXR Interpretation: Yes: No Acute Disease Medical Decision Making Medical Decision Making: Progress: CXR ordered and reviewed. Unremarkable exam. Results discussed with patient. Motrin PO given. Patient comfortable throughout ED course, stable for discharge home. She already has a referral to neurology, and will try to follow up as soon as possible. Disposition - Disposition Disposition: HOME/ ROUTINE Disposition Time: 14:45 Condition: GOOD Additional Instructions: IGGY KNAPP, thank you for letting us take care of you today. Your provider was Louise Cheatham MD and you were treated for HEADACHE. The emergency medical care you received today was directed at your acute symptoms. If you were prescribed any medication, please fill it and take as directed. It may take several days for your symptoms to resolve. Return to the Emergency Department if your symptoms worsen, do not improve, or if you have any other problems. Please contact your doctor or call one of the physicians/clinics you have been referred to that are listed on the Patient Visit Information form that is included in your discharge packet. Bring any paperwork you were given at discharge with you along with any medications you are taking to your follow up visit. Our treatment cannot replace ongoing medical care by a primary care provider outside of the emergency department. Thank you for allowing the [facility] team to be part of your care today. If you had an X-Ray or CT scan: A Radiologist will review the ED reading if any change in treatment is needed we will contact you. If you had a blood, urine, or wound culture: It will take several days for the results, if any change in treatment is needed we will contact you. If you had an STI test: It will take 48 hours for the results. Please call after 1 week if you have not heard back. Instructions: Concussion, Adult (DC), Shortness of Breath (Dyspnea) (DC) Forms: [employer] (Vietnamese) - Clinical Impression Clinical Impression: Headache, Shortness of breath - Scribe Statement The provider has reviewed the documentation as recorded by the Scribe (Samra Melendrez) Provider Attestation: All medical record entries made by the Scribe were at my direction and personally dictated by me. I have reviewed the chart and agree that the record accurately reflects my personal performance of the history, physical exam, medical decision making, and the department course for this patient. I have also personally directed, reviewed, and agree with the discharge instructions and disposition.
[2018-08-26 14:51] VITALS: BP 121/63; PULSE 56; RESP 17; TEMP 98.9
--- NOTE | 2018-08-26 15:44 | RAD ---
Date of service: 08/26/2018 HISTORY: dyspnea COMPARISON: Comparison is made to the previous study dated 08/10/2014 TECHNIQUE: Chest PA and lateral FINDINGS: LUNGS: No active pulmonary disease. PLEURA: No significant pleural effusion identified. No pneumothorax apparent. CARDIOVASCULAR: No aortic atherosclerotic calcification present. Normal cardiac size. No pulmonary vascular congestion. OSSEOUS STRUCTURES: No significant abnormalities. VISUALIZED UPPER ABDOMEN: Normal. OTHER FINDINGS: None. IMPRESSION: No active disease.
== END 2018-08-26 14:50 | disposition home or self-care (01) ==
LOC: C.ER 12:24
DX: R51 Headache (principal); R06.02 Shortness of breath